=== PATIENT | male | born 1950 | race Caucasian/White ===

== ENCOUNTER → 2018-06-04 13:33 | Outpatient (CLI) | payer MEDICARE, SELFPAY ==
--- NOTE | 2018-06-04 13:43 | CT_ITS ---
STUDY: LOW DOSE CT LUNG CANCER SCREENING REASON FOR EXAM: Male, 67 years old. Hx tobacco use, former smoker-quit 1 year ago, smoked 2-3 packs/day x 50 years, 185#. Hx hypertension. RADIATION DOSAGE (If Supplied By Facility): CTDIvol = ( 3.02 ) mGy, DLP = ( 123.05 ) mGycm TECHNIQUE: No contrast was administered. Low dose technique was utilized (average mAS-38 and kVp 120). 1.25 mm axial source images with a slice interval of 1.25-mm were reconstructed in lung windows. 2.5 mm axial source images with a slice interval of 2.5-mm were reconstructed in lung windows. 5.0 mm axial source images with a slice interval of 5.0-mm were reconstructed in soft tissue windows. Nodule measured using lung windows on PACS and/or independent workstation with automated measurement of minimum and maximum diameter. Nodule measurement reported as average diameter rounded to the nearest whole number. Growth is defined as an increase ins size of greater than 1.5 mm. COMPARISON: None. NODULES: There is a calcified nodule in the anterior segment of the left lung lower lobe measures 2 mm axial image #175 is consistent with a granuloma. There is no demonstrated pleural abnormality. Normal heart and pericardium. Normal mediastinum. Normal hilar regions. Normal unenhanced pulmonary arteries. Normal aorta arch and descending thoracic aorta. There are multi-level degenerative changes of the thoracic spine. There is no demonstrated abnormality of the visualized upper abdomen. CT/Low Dose CT Lung Screening IMPRESSION: Lung-RADS category 2. Benign findings. Recommendation: Routine screening CT scan in one year. IMPORTANT NOTES FOR USE: ACR Lung-RADS Version 1.0 Assessment Categories Release Date: September 13, 2013 Category: Coded 0-4 bases on nodule(s) with highest degree of suspicion. Negative screen is defined as categories 1 and 2; a positive screen is defined as categories 3 and 4. Category 3 and 4A nodules that are unchanged on interval CT should be coded as category 2, and individuals returned to screening in 12 months. Category 4X: Category 3 or 4 nodules with additional imaging findings that increase the suspicion of lung cancer, such as spiculation, GGN that doubles in size in 1 year, enlarged lymph notes, etc. Category Modifiers: S (significant finding unrelated to lung cancer) and C (prior history of treated lung cancer) may be added to the 0-4 Lung-RADS Electronically Signed: Robyn Reyes MD at 8:18 EST Tel , Service support ,
--- OUTSIDE RECORDS SUMMARY | 2018-08-09 08:15 | XMS RPT_ITS ---
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 water, and shellfish (lobster, crab, shrimp, oysters). Limit use to no more than one serving of one of these per week. Shellfish are high in cholesterol but low in saturated fat and should be used sparingly. Meats and fish should be broiled (mercado or oven) or baked on a rack. EGGS - Egg substitutes and egg whites (use freely). Egg yolks (limit two per week). FRUITS - Eat three servings of fresh fruit per day (1 serving = 1/2 cup). Be sure to have at least one citrus fruit daily. Frozen or canned fruit with no sugar or syrup added may be used. VEGETABLES - Most vegetables are not limited (see Foods to Avoid). One dark green (string beans, escarole) or one deep yellow (squash) vegetable is recommended daily. Cauliflower, broccoli, and celery, as well as potato skins, are recommended for their fiber content (fiber is associated with cholesterol reduction). It is preferable to steam vegetables, but they may be boiled, strained, or braised with polyunsaturated vegetable oil (see below). BEANS - Dried peas or beans (1 serving = 1/2 cup) may be used as a bread substitute. NUTS - Almonds, walnuts, and peanuts may be used sparingly (1 serving = 1 tablespoon). Use pumpkin, sesame, or sunflower seeds. BREADS/GRAINS - One roll or one slice of whole grain or enriched bread may be used, or three soda crackers or four pieces of georgia toast as a substitute. Spaghetti, rice or noodles (1/2 cup) or 1/2 large ear of corn may be used as a bread substitute. In preparing these foods, do not use butter or shortening; use soft margarine. Also use egg and sugar substitutes. Choose high fiber grains, such as oats and whole wheat. CEREALS - Use 1/2 cup of hot cereal or 1/4 cup of cold cereal per day. Add a sugar substitute if desired, with 99% fat-free or skim milk. MILK PRODUCTS - Always use 99% fat-free or skim milk, dairy products such as low-fat cheeses (hernandez's, uncreamed diet cottage), low-fat yogurt, and powdered skim milk. FATS/OILS - Use soft (not stick) margarine, vegetable oils that are high in polyunsaturated fats (such as safflower, sunflower, soybean, corn, and cottonseed). Always refrigerate meat drippings to harden the fat and remove it before preparing gravies. DESSERTS/SNACKS - Limit to two servings per day; substitute each serving for a bread/cereal serving; ice milk or water sherbet (1/4 cup); unflavored gelatin or gelatin flavored with sugar substitute (1/2 cup); pudding prepared with skim milk (1/2 cup); egg white souffles; unbuttered popcorn (1 1/2 cups). Substitute carob for chocolate. BEVERAGES - Fresh fruit juices (limit to 4 oz. per day); black coffee; plain or herbal teas; soft drinks with sugar substitutes; club soda, preferably salt-free; cocoa made with skim milk or nonfat dried milk and water (sugar substitute added, if desired); clear broth. Alcohol - limit to two servings per day (see Foods to Avoid). MISCELLANEOUS - You may use the following freely: vinegar; spices; herbs; nonfat bouillon; mustard; Worcestershire sauce; soy sauce; flavoring essence. FOODS TO AVOID MEATS/FISH - Marbled beef, pork, richards, sausage and other pork products; fatty fowl (duck, goose); skin and fat of turkey and chicken; processed meats; luncheon meats (salami, bologna); frankfurters and fast food hambergers (they are loaded with fat); organ meats (kidneys, liver); canned fish packed in oil. EGGS - Limit egg yolks to two per week. FRUITS - Coconuts (rich in saturated fat) VEGETABLES - Avoid avocados. Starchy vegetables (potatoes, corn sood beans, dried peas, beans) may be used only if they are substitutes for a serving of bread or cereal. (Baked potato skin, however, is desirable for its fiber content). BEANS - Commercial baked beans with sugar and/or pork added. NUTS - Avoid nuts. Limit peanuts and walnuts to one tablespoonful per day. BREADS/GRAINS - Any baked goods with shortening and/or sugar. Commercial mixes with dried eggs and whole milk. Avoid sweet rolls, doughnuts, breakfast pastries (Moroccan), and sweetened packaged cereals (the added sugar converts readily to triglycerides). MILK PRODUCTS - Whole milk and whole-milk packaged goods; cream; ice cream; whole-milk puddings, yogurt, or cheeses; nondairy cream substitutes. FATS/OILS - Butter, lard, animal fats, richards drippings, gravies, cream sauces, as well as palm and coconut oils. All these are high in saturated fats. Examine labels on cholesterol free products for hydrogenated fats. (These are oils that have been hardened into solids and in the process have become saturated.) DESSERTS/SNACKS - Fried snack foods like potato chips; chocolate; candies in general; jams, jellies, syrups; whole-milk puddings; ice cream and milk sherberts; hydrogenatd peanut butter. BEVERAGES - Sugared fruit juices and soft drinks; cocoa made with whole milk and/or sugar. When using alcohol (1 oz. liquor, 5 oz. beer, or 2 1/2 oz. dry table wine per serving), one serving must be substituted for one bread or cereal serving (limit two servings of alcohol per day). SPECIAL NOTES 1. Remember that even nonlimited foods should be used in moderation. 2. While on a cholesterol-lowering diet, be sure to avoid animal fats and marbled meats. 3. While on a triglyceride-lowering diet, be sure to avoid sweets and to control the amount of carbohydrates you eat (starchy foods such as flower, bread, or potatoes). 4. Buy a good low-fat cookbook, such as the one published by the [place] [employer]. 5. Consult your physician if you have any questions. Prescriptions ordered this encounter Disp Refills Start End LISINOPRIL 40 MG TABLET 30 t* 5 05/11/2018 Route: ORAL Sig: Take 1 tablet by mouth once daily. HYDROCHLOROTHIAZIDE 25 MG TABLET 30 t* 5 05/11/2018 Route: ORAL Sig: Take 1 tablet by mouth once daily. Medications Discontinued During This Encounter pravastatin (PRAVACHOL) 20 mg tablet 30 t* 5 12/02/2017 05/11/2018 Route: ORAL Sig: Take 1 tablet by mouth daily at bedtime. Patient not taking: Reported on 05/11/2018 Disc: Reason for discontinue is not on file. Hydrochlorothiazide 12.5 mg capsule 30 c* 5 11/12/2017 05/11/2018 Route: ORAL Sig: Take 1 capsule by mouth once daily. Disc: Reason for discontinue is not on file. lisinopril (ZESTRIL, PRINIVIL) 40 mg* 30 t* 5 10/20/2017 05/11/2018 Cmt: This prescription was filled on 10/19/2017. Any refills authorized will be placed on file. Sig: TAKE 1 TABLET EVERY DAY Disc: Reason for discontinue is not on file. Disposition: Return in about 3 months (around 08/09/2018). Follow-up and Disposition History Recorded Encounter Status:Closed by ROBERT MANUEL MD on 05/11/18 PROGRESS Observed: 11/26/2017 Status: COMPLETED Source: [facility] 1:11 PM [facility] REPOSITORY HNO ID: [id number] Author: Lula Price) Fausto Service: (none) Author Type: Nurse Practitioner Type: Progress Notes Filed: 11/26/2017 3:13 PM Note Text: Blood pressure improved. Stay on current dose of medication. Recheck in one month CNOV Observed: 11/26/2017 Status: COMPLETED Source: [facility] 8:40 AM [facility] REPOSITORY Office Visit (FAMPWS) MARCIANO MOULTON ([id number]) 1950 M Date Time Provider Department 11/26/17 8:40 AM LULA LAMBERT (BARREL ASSEMBLER HELPER) FAMPWS During your visit today, we recorded the following information about you: Pulse Blood pressure 64/minute 152/72 Silvia Vu FIELD ARTILLERY TARGETING TECHNICIAN 11/26/2017 3:13 PM Signed BP Chacho Serial, Digital BP Readings, Taken 2 Minutes Apart, Average Readings: 141/72 Pulse: 59 See additional Chacho BP readings in nurse note. Reason for blood pressure check - Last BP elevated and Medication adjustment Patient is: Taking medication as prescribed Yes Took medication today Yes Experiencing side effects No Recommendations Follow recommended diet instructions and will call with additional instructions Pt has been identified by name and birthdate: Yes Allergies reviewed: Yes Latex allergy: no. Medication - prescribed and OTC reviewed and updated: Yes Do you need any prescription refills prior to your next visit: No Health Maintenance: Reviewed and up to date Silvia Vu LPN 11/26/2017 9:04 AM Signed Chacho BP readings 150/69-61 141/69-58 140/69-58 125/80-59 148/71-59 Lula Lambert APRN.CNP 11/26/2017 3:13 PM Signed Blood pressure improved. Stay on current dose of medication. Recheck in one month Referring Provider: SELF [200] Allergies As of Date: 11/26/2017 (No Known Allergies) Date Reviewed: 11/12/2017 Reviewed by: Rose Faria Courtesy Driver - Fully Assessed Reason for Visit: Blood Pressure Check [195] Primary Visit Diagnosis:Essential hypertension [I10] Prescriptions as of 11/26/2017 Sig: HYDROCHLOROTHIAZIDE 12.5 MG C* Take 1 capsule by mouth once * LISINOPRIL 40 MG TABLET TAKE 1 TABLET EVERY DAY ACETAMINOPHEN 500 MG TABLET Take 500 mg by mouth every 8 * Problem List As Of Date 11/26/2017 Noted Resolved HTN (hypertension) [I10] INVALID FOR* Hyperlipidemia [E78.5] INVALID FOR* Tobacco use [Z72.0] Visit Notes: >> Silvia Vu LPN Wed Nov 26, 2017 9:03 AM Status: Signed Chacho BP readings 150/69-61 141/69-58 140/69-58 125/80-59 148/71-59 Follow-up and Disposition History Recorded Encounter Status:Closed by GREGG DEVLIN MA on 11/26/17 PROGRESS Observed: 11/26/2017 Status: COMPLETED Source: [facility] 8:30 AM [facility] REPOSITORY O ID: [id number] Author: Silvia Vu LPN Service: (none) Author Type: (none) Type: Progress Notes Filed: 11/26/2017 3:13 PM Note Text: BP Chacho Serial, Digital BP Readings, Taken 2 Minutes Apart, Average Readings: 141/72 Pulse: 59 See additional Chacho BP readings in nurse note. Reason for blood pressure check - Last BP elevated and Medication adjustment Patient is: Taking medication as prescribed Yes Took medication today Yes Experiencing side effects No Recommendations Follow recommended diet instructions and will call with additional instructions Pt has been identified by name and birthdate: Yes Allergies reviewed: Yes Latex allergy: no. Medication - prescribed and OTC reviewed and updated: Yes Do you need any prescription refills prior to your next visit: No Health Maintenance: Reviewed and up to date COMP METABOLIC PANEL Collected: 11/26/2017 Status: F Source: [facility] 8:16 AM [facility] REPOSITORY TYPE CODE TESTS RESULT OUT OF REFERENCE UNITS RANGE LAB TP 6.3-8.0 g/dL Protein, Total 6.9 LAB ALB 3.9-4.9 g/dL Albumin 4.5 LAB CA 8.5-10.2 mg/dL Calcium, Total 9.5 LAB TBIL 0.2-1.3 mg/dL Bilirubin, Total 0.4 LAB ALKP 36-108 U/L Alkaline Phosphatase 62 LAB AST 14-40 U/L AST 22 LAB GLU 74-99 mg/dL Glucose High 100 Result Comment: The [place] [employer] (ADA) provides guidance for cutoff values for fasting glucose and random glucose. The ADA defines fasting as no caloric intake for at least 8 hours. Fas ting plasma glucose results between 100 to 125 mg/dL indicate increased risk for diabetes (prediabetes). Fasting plasma glucose results greater than or equal to 126 mg/dL meet the criteria for diagnosis of diabetes. In the absence of unequivocal hyperglycemia, results should be confirmed by repeat testing. In a patient with classic symptoms of hyperglycemia or hyperglycemic crisis, random plasma glucose results greater than or equal to 200 mg/dL meet the criteria for diagnosis of diabetes. Reference: Standards of Medical Care in Diabetes 2016, [place] [employer]. Diabetes Care. 2016.39(Suppl 1). LAB BUN 9-24 mg/dL BUN High 27 LAB CRET 0.73-1.22 mg/dL Creatinine High 1.24 LAB NA 136-144 mmol/L Sodium 136 LAB K 3.7-5.1 mmol/L Potassium 4.3 LAB CL 97-105 mmol/L Chloride 99 LAB CO2 22-30 mmol/L CO2 23 LAB AGAP 9-18 mmol/L Anion Gap 14 LAB ALT 10-54 U/L ALT 17 LAB GFRAA eGFR- Amer. >60 LAB GFRNAA . eGFR-All Other Races 58 Result Comment: eGFR (Estimated GFR) Units of measure: mL/min/1.73 meters squared eGFR is derived from the reexpressed MDRD Study equation using the following parameters: serum creatinine, age, gender and race. The creatinine assay has been calibrated to be traceable to IDMS. An eGFR <60 mL/min/1.73m2 for >3 months is consistent with chronic kidney disease. Refer to KDOQI guidelines for clinical interpretation. In patients with unstable renal function, e.g. those with acute kidney injury, the eGFR may not accurately reflect actual GFR. Performed By: #### CMP, LIPB #### [facility] [address] [place] [id number] LIPID PANEL, BASIC Collected: 11/26/2017 Status: F Source: [facility] 8:[address] [facility] REPOSITORY TYPE CODE TESTS RESULT OUT OF REFERENCE UNITS RANGE LAB CHOL <200 mg/dL Cholesterol 198 Result Comment: <200 mg/dL, Desirable 200-239 mg/dL, Borderline high >239 mg/dL, High LAB TRIGLY <150 mg/dL Triglyceride High 331 Result Comment: <150 mg/dL, Normal 150-199 mg/dL, Borderline high 200-499 mg/dL, High >499 mg/dL, Very high LAB HDL >39 mg/dL HDL-Cholesterol Low 36 Result Comment: 40-59 mg/dL, Acceptable >59 mg/dL, High: Negative risk factor for coronary heart disease <40 mg/dL, Low: Positive risk factor for coronary heart disease LAB LDL <100 mg/dL LDL-Cholesterol 96 Result Comment: <100 mg/dL, Optimal 100-129 mg/dL, Near optimal/above optimal 130-159 mg/dL, Borderline high 160-189 mg/dL, High >189 mg/dL, Very high Secondary prevention optimal LDL Cholesterol levels are recommended to be < 70 mg/dL LAB NONHDL <130 mg/dL Non HDL High Cholesterol 162 Result Comment: <130 mg/dL, Optimal 130-159 mg/dL, Near optimal/above optimal 160-189 mg/dL, Borderline high 190-219 mg/dL, High >219 mg/dL, Very high Secondary prevention optimal non HDL Cholesterol levels are recommended to be < 100 mg/dL LAB FT hrs Fasting Time 13 LAB VLDL <30 mg/dL High VLDL Cholesterol 66 LAB TCHDL <5.10 High TC:HDL Ratio 5.50 LAB LDLHDL <2.54 High LDL:HDL Ratio 2.67 Result Comment: Reference: 1. National Cholesterol Education Program ATP III Guideline At-A-Glance Quick Desk Reference: National Heart, Lung, and Blood Resaca. National Institutes of Health. 2001: NIH Publication No. 01-3305. 2. An International Atherosclerosis Society position paper: global recommendations for the management of dyslipidemia: executive summary, Atherosclerosis. 2014: 232(2):410-413. Performed By: #### CMP, LIPB #### [facility] [address] [place], [place] [address] PROGRESS Observed: 11/12/2017 Status: COMPLETED Source: [facility] 9:27 AM [facility] RE[facility]IT[facility] HNO ID: [id number] Author: Lula Lambert Service: (none) Author Type: Nurse Practitioner Type: Progress Notes Filed: 11/12/2017 10:17 AM Note Text: Marciano Moulton is a 67 year old male who presents in follow up of HTN and Hyperlipidemia and was last seen 6 months ago. Denies problems/concerns. HTN: Mr. Moulton indicates that he is feeling well and denies any symptoms referable to elevated blood pressure. Specifically denies headache, chest pain, palpitations, dyspnea, peripheral edema and orthopnea. Patient denies any side effects of his medication(s) and is compliant with their regimen. He does check BP's away from this office with average BP's in the normal range. Marciano likes to exercise by woodworking and carving. He watches his diet for sodium, low fat and low cholesterol some of the time. Last 3 Encounter BP Readings: Date: BP: 11/12/2017 160/80 04/29/2017 110/52[ (from Extended Vitals)[ 10/30/2016 138/72 Recheck 170/82 Hyperlipidemia. Mr. Moulton reports that he stopped cholesterol medication. Refers that he only took medications for about 5-6 days -- couldn't sleep. Tobacco abuse -- quit smoking in June. occ weed use. Cholesterol, Total (mg/dL) Date Value 10/09/2016 207 2015 196 HDL Cholesterol (mg/dL) Date Value 10/09/2016 34 2015 26 LDL Cholesterol (mg/dL) Date Value 10/09/2016 118 2015 109 Triglyceride (mg/dL) Date Value 10/09/2016 274 2015 307 Past Medical, Surgical, Family and Social Histories reviewed and updated today in the History tab of [facility]. Current Medications and allergies reviewed. PHYSICAL EXAM: BP 160/80 (BP Site: Right Arm, BP Position: Sitting, BP Cuff Size: Regular Adult) Pulse 68 Resp 12 Wt 82.6 kg (182 lb) BMI 27.68 kg/m? BMI 27.68 kg/(m2) General appearance: Alert, cooperative, pleasant, in no acute distress Head: Normocephalic, atraumatic Eyes: conjunctiva/corneas normal, PERRL, EOMI Oropharynx: moist without lesions Neck: supple, no adenopathy, thyroid normal size, non-tender, without nodularity and no bruits Heart: regular rate and rhythm, without murmur Lungs: clear to auscultation, without rales or wheeze, good air exchange Abdomen:soft, nondistended, nontender, no hepatosplenomegaly or masses Ext: no edema in LE bilaterally ASSESSMENT/PLAN: 1. Essential hypertension - ICD9: 401.9, ICD10: I10 (primary diagnosis) - poor control - Add HCTZ - Recommended regular aerobic exercise. - Goal of BP <130/80 - LIPID PANEL, NONFASTING - COMP METABOLIC PANEL - HYDROCHLOROTHIAZIDE 12.5 MG CAPSULE 2. Hyperlipidemia, unspecified hyperlipidemia type - ICD9: 272.4, ICD10: E78.5 - to be determined upon return of lab results Pt stopped cholesterol lower medication -- couldn't sleep. - COMP METABOLIC PANEL - LIPID PANEL BASIC 3. Tobacco use - ICD9: 305.1, ICD10: Z72.0 - Quit in June -- keep up the good work! Discussed treatment plan and patient voices understanding. Patient's questions answered appropriately. Medications and potential side effects were discussed and patient voices understanding. Return to the office as scheduled or as needed for worsening/no improvement. Lula Lambert APRN.ANAMIKA CNOV Observed: 11/12/2017 Status: COMPLETED Source: [facility] 9:20 AM [facility] REPOSITORY Office Visit (FAMPWS) MARCIANO MOULTON ([id number]) 1950 M Date Time Provider Department 11/12/17 9:20 AM LULA LAMBERT (ANAMIKA) BHARGAV During your visit today, we recorded the following information about you: Pulse Respiration Blood pressure Weight 68/minute 12/minute 167/76 82.6 kg Lula Lambert APRN.CNP 11/12/2017 10:17 AM Signed Marciano Moulton is a 67 year old male who presents in follow up of HTN and Hyperlipidemia and was last seen 6 months ago. Denies problems/concerns. HTN: Mr. Moulton indicates that he is feeling well and denies any symptoms referable to elevated blood pressure. Specifically denies headache, chest pain, palpitations, dyspnea, peripheral edema and orthopnea. Patient denies any side effects of his medication(s) and is compliant with their regimen. He does check BP's away from this office with average BP's in the normal range. Marciano likes to exercise by woodworking and carving. He watches his diet for sodium, low fat and low cholesterol some of the time. Last 3 Encounter BP Readings: Date: BP: 11/12/2017 160/80 04/29/2017 110/52[ (from Extended Vitals)[ 10/30/2016 138/72 Recheck 170/82 Hyperlipidemia. Mr. Moulton reports that he stopped cholesterol medication. Refers that he only took medications for about 5-6 days -- couldn't sleep. Tobacco abuse -- quit smoking in June. occ weed use. Cholesterol, Total (mg/dL) Date Value 10/09/2016 207 2015 196 HDL Cholesterol (mg/dL) Date Value 10/09/2016 34 2015 26 LDL Cholesterol (mg/dL) Date Value 10/09/2016 118 2015 109 Triglyceride (mg/dL) Date Value 10/09/2016 274 2015 307 Past Medical, Surgical, Family and Social Histories reviewed and updated today in the History tab of [facility]. Current Medications and allergies reviewed. PHYSICAL EXAM: BP 160/80 (BP Site: Right Arm, BP Position: Sitting, BP Cuff Size: Regular Adult) Pulse 68 Resp 12 Wt 82.6 kg (182 lb) BMI 27.68 kg/m? BMI 27.68 kg/(m2) General appearance: Alert, cooperative, pleasant, in no acute distress Head: Normocephalic, atraumatic Eyes: conjunctiva/corneas normal, PERRL, EOMI Oropharynx: moist without lesions Neck: supple, no adenopathy, thyroid normal size, non-tender, without nodularity and no bruits Heart: regular rate and rhythm, without murmur Lungs: clear to auscultation, without rales or wheeze, good air exchange Abdomen:soft, nondistended, nontender, no hepatosplenomegaly or masses Ext: no edema in LE bilaterally ASSESSMENT/PLAN: 1. Essential hypertension - ICD9: 401.9, ICD10: I10 (primary diagnosis) - poor control - Add HCTZ - Recommended regular aerobic exercise. - Goal of BP <130/80 - LIPID PANEL, NONFASTING - COMP METABOLIC PANEL - HYDROCHLOROTHIAZIDE 12.5 MG CAPSULE 2. Hyperlipidemia, unspecified hyperlipidemia type - ICD9: 272.4, ICD10: E78.5 - to be determined upon return of lab results Pt stopped cholesterol lower medication -- couldn't sleep. - COMP METABOLIC PANEL - LIPID PANEL BASIC 3. Tobacco use - ICD9: 305.1, ICD10: Z72.0 - Quit in June -- keep up the good work! Discussed treatment plan and patient voices understanding. Patient's questions answered appropriately. Medications and potential side effects were discussed and patient voices understanding. Return to the office as scheduled or as needed for worsening/no improvement. OSVALDO Singletary APRN.CNP 11/12/2017 10:08 AM Signed 1. Start hydrochlorothiazide daily. 2. Return in 2 weeks for blood pressure check and repeat labwork. (10-12 hour fast). Referring Provider: SELF [200] Allergies As of Date: 11/12/2017 (No Known Allergies) Date Reviewed: 11/12/2017 Reviewed by: Rose Faria Cma - Fully Assessed Reason for Visit: F/U 6 months [1177] Primary Visit Diagnosis:Essential hypertension [I10] Other Visit Diagnoses:Hyperlipidemia, unspecified hyperlipidemia type [E78.5] Tobacco use [Z72.0] Order(s):COMP METABOLIC PANEL [SQCMP] Order #: [id number] FUTURE Hydrochlorothiazide 12.5 mg capsuleTake 1 capsule by mouth once daily.Disp: 30 capsuleRfl: 5 LIPID PANEL BASIC [SQLIPB] Order #: [id number] FUTURE Prescriptions as of 11/12/2017 Sig: LISINOPRIL 40 MG TABLET TAKE 1 TABLET EVERY DAY ACETAMINOPHEN 500 MG TABLET Take 500 mg by mouth every 8 * HYDROCHLOROTHIAZIDE 12.5 MG C* Take 1 capsule by mouth once * Problem List As Of Date 11/12/2017 Noted Resolved HTN (hypertension) [I10] INVALID FOR* Hyperlipidemia [E78.5] INVALID FOR* Tobacco use [Z72.0] Other instructions from your clinician: 1. Start hydrochlorothiazide daily. 2. Return in 2 weeks for blood pressure check and repeat labwork. (10-12 hour fast). Prescriptions ordered this encounter Disp Refills Start End HYDROCHLOROTHIAZIDE 12.5 MG CAPSULE 30 c* 5 11/12/2017 Route: ORAL Sig: Take 1 capsule by mouth once daily. Medications Discontinued During This Encounter atorvastatin (LIPITOR) 10 mg tablet 30 t* 2 04/29/2017 11/12/2017 Route: ORAL Sig: Take 1 tablet by mouth daily at bedtime. For cholesterol. Disc: Discontinued by Patient Disposition: Return if symptoms worsen or fail to improve. Follow-up and Disposition History Recorded Encounter Status:Closed by LULA LAMBERT CNP on 11/12/17 ALLERGIES ALLERGIES DATE TYPE / CODE NAME / CODE REACTION SEVERITY SOURCE 05/11/2018 Drug [id number] OTHER: SEE C [facility] Class/29419 REDUCTASE [address] [place] [address](SNOMED INHIBITORS Repository CT) Drug NO KNOWN [facility] Class/11410 ALLERGIES [place] [address](SNOMED Repository CT) ENCOUNTERS ENCOUNTERS ADMIT/DISCHARGE ACCOUNT ADMITTING ENCOUNTER LOCATION SOURCE NUMBER CLASS 06/04/2018 [id number] Ambulatory [facility] ing:CT Repository 06/02/2018/06/02/19 [id number] Ambulatory [address] [place] Rep[place] 05/26/2018/05/27/19 [id number] Ambulatory [address] [place] Rep[place] 05/11/2018/05/13/20 [id number] Ambulatory [address] [place] 11/26/2017/11/28/19 [id number] Ambulatory [address] Repository 11/26/2017/11/27/19 [id number] Ambulatory [address] Repository 11/12/2017/11/14/19 [id number] Ambulatory [address] Repository PAYERS PAYERS ENCOUNTER GUARANTOR PAYER SUBSCRIBER SOURCE 06/04/2018 MARCIANO De La Rosa Primary MARCIANO Leslie [id number] SPARR Insurance:MEDICARE AMESDOB: [place], [place] A BPolicy [id number] [address]Dvr: ([id number]) Number: Repository [phone] (HP) [id number] Date:2018-05-27 06/04/2018 Secondary NOT GIVENCLEMENT Leslie Insurance:SELF PAY [facility] Number: Effective Repository Date:2018-05-27
== END ==
PROVIDERS: PCP Family Medicine; Referring Provider Family Medicine; Visit Provider Family Medicine
DX: Z87.891 Personal history of nicotine dependence (principal)
CPT/HCPCS: G0297

== ENCOUNTER → 2022-03-28 | Outpatient (CLI) | payer MEDICARE, SELFPAY ==
--- NOTE | 2022-03-28 08:13 | CT_ITS ---
STUDY: LOW DOSE CT LUNG CANCER SCREENING REASON FOR EXAM: Male, 71 years old. HX TOBACCO USE. Prior smoker. Patient smoked 2 packs per day for 50 years. RADIATION DOSAGE (If Supplied By Facility): CTDIvol = ( 3.02 ) mGy, DLP = ( 121.92 ) mGycm TECHNIQUE: No contrast was administered. Low dose technique was utilized (average mAS-38 and kVp 120). 1.25 mm axial source images with a slice interval of 1.25-mm were reconstructed in lung windows. 2.5 mm axial source images with a slice interval of 2.5-mm were reconstructed in lung windows. 5.0 mm axial source images with a slice interval of 5.0-mm were reconstructed in soft tissue windows. COMPARISON: Comparison is made with prior examination dated 06/04/2018. NODULES: No suspicious nodules are seen. A calcified granuloma is seen in the anterior segment of the left lower lobe. Emphysema: Hyperinflation. Emphysematous changes. Endobronchial lesion: None Aorta: Atherosclerotic calcific plaques. CORONARY ARTERIES: Coronary artery calcification is seen. Heart: Unremarkable Pulmonary artery: Unremarkable Mediastinal nodes: Small mediastinal lymph nodes Other chest and abdominal findings: CT/Low Dose CT Lung Screening IMPRESSION: Lung-RADS category 2 - Continue annual screening with LDCT in 12 months. IMPORTANT NOTES FOR USE: ACR Lung-RADS Version 1.1 Assessment Categories Release Date: 2018 Category: Coded 0-4 bases on nodule(s) with highest degree of suspicion. Negative screen is defined as categories 1 and 2; a positive screen is defined as categories 3 and 4. Category 3 and 4A nodules that are unchanged on interval CT should be coded as category 2, and individuals returned to screening in 12 months. Category 4X: Category 3 or 4 nodules with additional imaging findings that increase the suspicion of lung cancer, such as spiculation, GGN that doubles in size in 1 year, enlarged lymph notes, etc. Category Modifiers: S (significant finding unrelated to lung cancer) Electronically Signed: Cornel Moore MD at 11:17 EST ,
== END | disposition home or self-care (01) ==
LOC: CT 08:09
PROVIDERS: PCP Family Medicine; Referring Provider Family Medicine; Visit Provider Family Medicine
DX: Z12.2 Encounter for screening for malignant neoplasm of respiratory organs (principal); Z87.891 Personal history of nicotine dependence
CPT/HCPCS: 71271